=== PATIENT | female | born 1985 | race Caucasian/White ===

== ENCOUNTER 2016-05-02 11:45 | Emergency (ER) ==
[2016-05-02 11:49] VITALS: BP 113/69; TEMP 97; BMI 26.2
--- NOTE | 2016-05-02 12:19 | ED.PDOC ---
General ED Provider: Dr. RIDGE BERMAN Chief Complaint: Abdominal Pain Stated Complaint: abdominal pain Time Seen by Physician: 12:00 Mode of Arrival: Walk-In Information Source: Patient Exam Limitations: No limitations Primary Care Provider: ARMANI KAUR Nursing and Triage Documentation Reviewed and Agree: Yes GI Complaint Exam - Abdominal Pain Complaint/Exam Onset: Gradual Duration: 1 day Symptoms Are: Resolved Timing: Intermittent Location of Pain: Epigastric Character: Reports: Dull Aggravating: Reports: None Alleviating: Reports: None Associated Signs and Symptoms: Denies: Diaphoresis, Fever, Cough, Chest pain, Dizziness, Back pain, Constipation, Blood in stool, Dysuria, Urinary frequency, Decreased urine output, Decreased appetite, Vaginal bleeding, Vaginal discharge , Nausea, Vomiting, Diarrhea, Sore throat, Decreased activity AAA Risk Factors: Reports: None Cardiac Risk Factors: Reports: None Ectopic Risk Factors: Reports: None Ovarian Torsion Risk Factors: Reports: None Surgical Obstruction Risk Factors: Reports: None Related Surgical History: Reports: None Patient Rh Status: Unknown Abdominal Findings: Present: None Differential Diagnoses: Appendicitis, Bowel Obstruction, Constipation, Diverticulitis, Pancreatitis Review of Systems - Review Of Systems Constitutional: Reports: No symptoms Eyes: Reports: No symptoms Ears, Nose, Mouth, Throat: Reports: No symptoms Respiratory: Reports: No symptoms Cardiac: Reports: No symptoms GI: Reports: Abdominal pain : Reports: No symptoms Musculoskeletal: Reports: No symptoms Skin: Reports: No symptoms Neurological: Reports: No symptoms Endocrine: Reports: No symptoms Hematologic/Lymphatic: Reports: No symptoms All Other Systems: Reviewed and Negative Past Medical History - Past Medical History Previously Healthy: Yes Endocrine: Reports: None Cardiovascular: Reports: None Respiratory: Reports: None Hematological: Reports: None Gastrointestinal: Reports: None Genitourinary: Reports: None Neuro/Psych: Reports: None Musculoskeletal: Reports: None Cancer: Reports: None Last Menstrual Period: 1 month ago - Surgical History General Surgical History: Reports: None - Family History Family History: Reports: None - Social History Smoking Status: Never smoker Hx Substance Use: No Alcohol Screening: None Physical Exam - Physical Exam Appearance: Well-appearing, No pain distress, Well-nourished Eyes: ROBSON, EOMI, Conjunctiva clear ENT: Ears normal, Nose normal, Oropharynx normal Respiratory: Airway patent, Breath sounds clear, Breath sounds equal, Respirations nonlabored Cardiovascular: RRR, Pulses normal, No rub, No murmur GI/: Soft, Nontender, No masses, Bowel sounds normal, No Organomegaly Musculoskeletal: Normal strength, ROM intact, No edema, No calf tenderness Skin: Warm, Dry, Normal color Neurological: Sensation intact, Motor intact, Reflexes intact, Cranial nerves intact, Alert, Oriented Psychiatric: Affect appropriate, Mood appropriate Critical Care Note - Critical Care Note Total Time (mins): 0 Course - Course Vital Signs: Temp Pulse Resp BP Pulse Ox 05/02/16 11:45 97.0 F L 78 18 113/69 98 Departure - Departure Time of Disposition: 12:18 (pr refused testing imaging may at bedside ) Disposition: HOME SELF-CARE Discharge Problem: Abdominal pain Instructions: Abdominal Pain (ED) Condition: Good Pt referred to PMD for follow-up: No Additional Instructions: Please call your Family Physician as soon as possible to schedule a follow-up appointment. Allergies/Adverse Reactions: Allergies No Known Allergies Allergy (Verified 05/02/16 11:49) Home Medications: Ambulatory Orders 1 [No Reported Medications] 05/02/16
== END 2016-05-02 12:25 | disposition home or self-care (01) ==
LOC: ED 11:45
DX: R10.13 Epigastric pain (principal)
CPT/HCPCS: 99281

== ENCOUNTER 2018-05-16 08:59 | Emergency (ER) ==
[2018-05-16 09:02] VITALS: BP 124/67; TEMP 98.4; BMI 27.0
--- NOTE | 2018-05-16 09:33 | ED.PDOC ---
General ED Provider: Dr. ARMANI ORTIZ Chief Complaint: Abdominal Pain Stated Complaint: Abdominal Pain: Onset last PM located in periumbilial region. Denies food intolerance. Experienced Nausea last PM with 2 episodes of Emesis. Denies Urinary symptoms( neg urgency, increased frequency or painful urination>) Denies lower abdomial or pelvic cramping. Currently on menses. States she's normally very healthy, exercises several times weekly and drinks adequate water daily. Denies previous similar symptoms. Denies problems with her monthly menstrual cycle. Time Seen by Physician: 09:20 Mode of Arrival: Walk-In Information Source: Patient Exam Limitations: No limitations Primary Care Provider: ARMANI KAUR Nursing and Triage Documentation Reviewed and Agree: Yes Does patient meet sepsis criteria?: No System Inflammatory Response Syndrome: Not Applicable Sepsis Protocol: For patient's 13 years and over: Temp is 96.8 and below OR 101 and greater Pulse >90 BPM Resp >20/minute Acutely Altered Mental Status Are patient's symptoms suggestive of a new infection, such as: -Pneumonia -Skin, Soft Tissue -Endocarditis -UTI -Bone, Joint Infection -Implantable Device -Acute Abdominal Infection -Wound Infection -Meningitis -Blood Stream Catheter Infection -Unknown Review of Systems - Review Of Systems Constitutional: Reports: No symptoms Eyes: Reports: No symptoms Ears, Nose, Mouth, Throat: Reports: No symptoms Respiratory: Reports: No symptoms Cardiac: Reports: No symptoms GI: Reports: Abdominal pain, Nausea. Denies: Blood streaked bowels, Constipated , Poor fluid intake, Rectal bleeding : Reports: No symptoms Musculoskeletal: Reports: No symptoms Skin: Reports: No symptoms Neurological: Reports: No symptoms Endocrine: Reports: No symptoms Hematologic/Lymphatic: Reports: No symptoms All Other Systems: Reviewed and Negative Past Medical History - Past Medical History Previously Healthy: Yes Endocrine: Reports: None Cardiovascular: Reports: None Respiratory: Reports: None Hematological: Reports: None Gastrointestinal: Reports: None Genitourinary: Reports: None Neuro/Psych: Reports: None Musculoskeletal: Reports: None Cancer: Reports: None Last Menstrual Period: PRESENTLY - Surgical History General Surgical History: Reports: None - Family History Family History: Reports: None - Social History Smoking Status: Never smoker Hx Substance Use: No Alcohol Screening: None - Immunizations Tetanus Shot up to Date: Yes Physical Exam - Physical Exam Appearance: Well-appearing, No pain distress, Well-nourished Ill-appearing: None Pain Distress: Mild Eyes: ROBSON, EOMI, Conjunctiva clear ENT: Ears normal, Nose normal, Oropharynx normal Respiratory: Airway patent, Breath sounds clear, Breath sounds equal, Respirations nonlabored Cardiovascular: RRR, Pulses normal, No rub, No murmur GI/: Soft, No masses, Bowel sounds normal, No Organomegaly, Tender (minimal umbilical pain to palpation without involuntary guarding ; bs normal) Musculoskeletal: Normal strength, ROM intact, No edema, No calf tenderness Skin: Warm, Dry, Normal color Neurological: Sensation intact, Motor intact, Reflexes intact, Cranial nerves intact, Alert, Oriented Psychiatric: Affect appropriate, Mood appropriate Critical Care Note - Critical Care Note Total Time (mins): 60 Course - Course Hematology/Chemistry: 05/16/18 09:50 05/16/18 09:50 Orders, Labs, Meds: Lab Review 05/16/18 05/16/18 05/16/18 09:36 09:36 09:50 WBC 7.25 RBC 4.23 Hgb 12.9 Hct 38.1 MCV 90.1 MCH 30.5 MCHC 33.9 RDW Coeff of [place] 13.1 Plt Count 254 Immature Gran % (Auto) 0.3 Neut % (Auto) 75.3 Lymph % (Auto) 16.1 [place] % (Auto) 6.5 Eos % (Auto) 0.8 Baso % (Auto) 1.0 Immature Gran # (Auto) 0.0 Neut # (Auto) 5.5 Lymph # (Auto) 1.2 [place] # (Auto) 0.5 Eos # (Auto) 0.1 Baso # (Auto) 0.1 Sodium Potassium Chloride Carbon Dioxide Anion Gap BUN Creatinine Estimated GFR (MDRD) BUN/Creatinine Ratio Glucose Calcium Total Bilirubin AST ALT Alkaline Phosphatase Total Protein Albumin Globulin Albumin/Globulin Ratio Lipase Urine Color Yellow Urine Clarity Turbid Urine pH 8.5 Ur Specific [place] 1.020 Urine Protein Negative Urine Glucose (UA) Negative Urine Ketones Negative Urine Blood Negative Urine Nitrite Negative Urine Bilirubin Negative Urine Urobilinogen 0.2 Ur Leukocyte Esterase Negative Ur Squamous Epith Cells Not present Amorphous Sediment 4+ Urine Test Negative 05/16/18 09:50 WBC RBC Hgb Hct MCV MCH MCHC RDW Coeff of [place] Plt Count Immature Gran % (Auto) Neut % (Auto) Lymph % (Auto) [place] % (Auto) Eos % (Auto) Baso % (Auto) Immature Gran # (Auto) Neut # (Auto) Lymph # (Auto) [place] # (Auto) Eos # (Auto) Baso # (Auto) Sodium 135.8 Potassium 4.44 Chloride 103.5 Carbon Dioxide 26.5 Anion Gap 10.24 BUN 11.2 Creatinine 0.72 Estimated GFR (MDRD) 94.00 BUN/Creatinine Ratio 15.55 Glucose 93.7 Calcium 9.05 Total Bilirubin 0.58 AST 25.1 ALT 14.6 Alkaline Phosphatase 34.6 L Total Protein 7.00 Albumin 4.43 Globulin 2.57 Albumin/Globulin Ratio 1.72 Lipase 82.5 Urine Color Urine Clarity Urine pH Ur Specific [place] Urine Protein Urine Glucose (UA) Urine Ketones Urine Blood Urine Nitrite Urine Bilirubin Urine Urobilinogen Ur Leukocyte Esterase Ur Squamous Epith Cells Amorphous Sediment Urine Test Orders Category Date Time Status CBC W/ AUTO DIFF Stat LAB 05/16/18 09:50 Completed CMP [COMPREHENSIVE METABOLIC PANEL] Stat LAB 05/16/18 09:50 Completed LIPASE Stat LAB 05/16/18 09:50 Completed UA [URINALYSIS C & S IF INDICATED] Stat LAB 05/16/18 09:36 Completed URINE Stat LAB 05/16/18 09:[address] ABDOMEN/PELVIS WO CONTRAST Stat RADS 05/16/18 09:59 Completed Vital Signs: Temp Pulse Resp BP Pulse Ox 05/16/18 08:59 98.4 F 64 18 124/67 99 Departure - Departure Time of Disposition: 11:20 (Pain has now resolved) Disposition: HOME SELF-CARE Discharge Problem: Abdominal pain Instructions: Abdominal Pain (ED) Condition: Good Pt referred to PMD for follow-up: Yes (1WK) IPMP verified?: No Additional Instructions: Clear liq diet for next 12-24 hrs then advance as tolerated. If condition returns or worsens return to ER May take Tylenol for pain as needed Allergies/Adverse Reactions: Allergies No Known Allergies Allergy (Verified 05/16/18 09:02) Home Medications: Ambulatory Orders 1 [No Reported Medications] 05/02/16 Disposition Discussed With: Patient
[2018-05-16 10:30] LABS: URINE PREGNANCY TEST NEGATIVE (NEGATIVE)
--- NOTE | 2018-05-16 10:58 | CT ---
EXAM: CT of the abdomen pelvis without contrast History: Periumbilical abdominal pain. Technique: Multiplanar CT images through the abdomen pelvis were obtained without the administration of IV contrast Findings: Lung bases are clear. No acute osseous abnormalities. Scoliosis. Moderate to severe deg enerative disc disease at L5 and S1. No renal stones and no hydronephrosis. No discrete gallstones identified by CT. The appendix is not dilated or inflamed. No focal liver or splenic lesions. No peripancreatic inflammation. Adrenal g lands are unremarkable. No ureteral calculi. No bowel obstruction. No bladder wall thickening. Ta mpon is seen in place within the vagina/cervical region. No perirectal inflammation. No free air an d no ascites. Impression: 1. No acute intra-abdominal or pelvic process. 2. Scoliosis. 3. Moderate to severe degenerative disc disease at L5-S1
== END 2018-05-16 11:45 | disposition home or self-care (01) ==
LOC: ED 08:59
DX: R10.9 Unspecified abdominal pain (principal); R11.2 Nausea with vomiting, unspecified
CPT/HCPCS: 36415; 80053; 81001; 81025; 83690; 85025; 99283